=== PATIENT | female | born 2000 | race Caucasian/White ===

== ENCOUNTER 2022-01-19 12:52 | Observation (INO) ==
[2022-01-19] MEDS ORDERED: Iopamidol - 370 500 ML MLS IVP ONE (15:56)
[2022-01-19] MEDS ORDERED: 0.9 % Sodium Chloride 1,000 ML IVC ONE (16:01)
[2022-01-19 16:10] LABS: Basophils % 0.2 %; Eosinophils # 0.1 K/mcL (0.0-0.6); Eosinophils % 1.5 %; Hematocrit 39.2 % (35.3-44.9); Hemoglobin 12.7 g/dL (11.5-15.4); Immature Granulocytes % 0.2 % (0-4); Lymphocytes # 2.7 K/mcL (0.6-4.6); Lymphocytes % 29.8 %; Mean Corpuscular HGB Conc 32.4 g/dL (31.6-35.5); Mean Corpuscular Hemoglobin 25.2 pg (28.0-33.3); Mean Corpuscular Volume 77.9 fL (83.0-100.0); Mean Platelet Volume 9.7 fL (9.4-12.4); Monocytes % 10.8 %; Neutrophils # 5.3 K/mcL (1.6-8.9); Platelet Count 248 K/mcL (140-400); Red Blood Count 5.03 M/mcL (3.82-4.97); Red Cell Distribution Width 12.8 % (11.5-14.5); Segmented Neutrophils % 57.5 %; White Blood Count 9.2 K/mcL (4.3-11.1)
[2022-01-19] MEDS ORDERED: Tdap (Boostrix) Vaccine 0.5 ML SYRINGE IM ONE (16:26)
[2022-01-19 16:27] LABS: Alanine Aminotransferase 13 Units/L (7-52); Albumin/Globulin Ratio 1.1 (1.1-2.2); Alkaline Phosphatase 158 Units/L (34-104); Aspartate Amino Transferase 19 Units/L (13-39); BUN/Creatinine Ratio 37 (6-26); Bilirubin,Direct 0.1 mg/dL (0.0-0.2); Bilirubin,Indirect 0.4 mg/dL (0.0-1.0); Bilirubin,Total 0.5 mg/dL (0.3-1.0); Blood Urea Nitrogen 11 mg/dL (6-20); Calcium 10.1 mg/dL (8.6-10.3); Carbon Dioxide 23 mEq/L (23-29); Chloride 103 mEq/L (98-107); Globulin 3.5 g/dL (2.4-3.5); Glucose 99 mg/dL (70-105); Magnesium 1.7 mg/dL (1.6-2.6); Osmolality,Calculated 279 (280-300); Potassium 3.6 mEq/L (3.5-5.1); Sodium 135 mEq/L (136-145); Total Protein 7.5 g/dL (6.4-8.9); Troponin I < 0.03 ng/mL (< 0.04)
[2022-01-19 16:45] LABS: Thyroid Stimulating Hormone < 0.010 mcIU/mL (0.340-5.600)
[2022-01-19] MEDS ORDERED: Melatonin 3 MG TABLET PO PRN (17:41)
[2022-01-19] MEDS ORDERED: Ondansetron ODT 4 MG TAB.RAPDIS SL PRN (17:41)
[2022-01-19] MEDS ORDERED: Mag Hydrox/Al Hydrox/Simeth 30 ML UDC PO PRN (17:41)
[2022-01-19] MEDS ORDERED: MOM Conc 10 ML UD.LIQ PO PRN (17:41)
[2022-01-19] MEDS ORDERED: Naloxone 0.4 MG/ML INJ IVP PRN (17:41)
[2022-01-19] MEDS ORDERED: *HR* Metoprolol 5 MG/5 ML VIAL IVP ONE (17:50)
[2022-01-19] MEDS: methIMAzole 5 MG TABLET PO SCH (19:27)
[2022-01-20] MEDS: *HR* Enoxaparin 40 MG/0.4 ML SYRINGE SQ SCH (05:39)
[2022-01-20 06:08] LABS: Basophils % 0.3 %; Eosinophils # 0.1 K/mcL (0.0-0.6); Eosinophils % 1.8 %; Hematocrit 35.5 % (35.3-44.9); Hemoglobin 11.6 g/dL (11.5-15.4); Immature Granulocytes % 0.2 % (0-4); Lymphocytes # 2.1 K/mcL (0.6-4.6); Lymphocytes % 32.9 %; Mean Corpuscular HGB Conc 32.7 g/dL (31.6-35.5); Mean Corpuscular Hemoglobin 25.3 pg (28.0-33.3); Mean Corpuscular Volume 77.5 fL (83.0-100.0); Mean Platelet Volume 10.2 fL (9.4-12.4); Monocytes # 0.8 K/mcL (0.0-1.3); Monocytes % 12.6 %; Neutrophils # 3.3 K/mcL (1.6-8.9); Platelet Count 240 K/mcL (140-400); Red Blood Count 4.58 M/mcL (3.82-4.97); Segmented Neutrophils % 52.2 %; White Blood Count 6.3 K/mcL (4.3-11.1)
[2022-01-20 06:29] LABS: BUN/Creatinine Ratio 52 (6-26); Blood Urea Nitrogen 12 mg/dL (6-20); Calcium 9.8 mg/dL (8.6-10.3); Carbon Dioxide 24 mEq/L (23-29); Chloride 107 mEq/L (98-107); Glucose 93 mg/dL (70-105); Osmolality,Calculated 287 (280-300); Potassium 4.3 mEq/L (3.5-5.1); Sodium 139 mEq/L (136-145)
[2022-01-20] MEDS: methIMAzole 5 MG TABLET PO SCH ×2 (09:46→20:40)
[2022-01-20] MEDS ORDERED: Iopamidol - 370 500 ML MLS IVP ONE (14:08)
[2022-01-21] MEDS: *HR* Enoxaparin 40 MG/0.4 ML SYRINGE SQ SCH (06:01)
[2022-01-21] MEDS: Propranolol LA (24 HR) 80 MG CAP.SA.24H PO SCH (08:05)
[2022-01-21] MEDS: methIMAzole 5 MG TABLET PO SCH ×2 (08:05→20:11)
[2022-01-22] MEDS: *HR* Enoxaparin 40 MG/0.4 ML SYRINGE SQ SCH (05:24)
[2022-01-22] MEDS: Propranolol LA (24 HR) 80 MG CAP.SA.24H PO SCH (09:41)
[2022-01-22] MEDS: methIMAzole 5 MG TABLET PO SCH (09:42)
[2022-01-22 14:54] VITALS: BP 112/72; PULSE 84; TEMP 97.6; O2SAT 97
== END 2022-01-22 16:14 | disposition home or self-care (01) ==
LOC: EMEROOARM 12:52 → 3ANU 12:52 → SUATTDRO 17:38 → 3ANU 18:40
PROVIDERS: ADMIT Hospitalist; ATTEND Registered Nurse